=== PATIENT | female | born 1955 | race Two or more races ===

== ENCOUNTER 2022-05-09 06:00 | Day surgery (SDC) | payer OTHER ==
[~2022-05-09] VITALS: Ht 157.5 cm; Wt 62.6 kg
[~2022-05-09 06:00] MED LIST: ATORVASTATIN CA20 MG PO; GLUMETZA500 MG PO; SINGULAIR10 MG PO
== END 2022-05-09 20:30 | disposition home or self-care (01) ==
LOC: CIR.AMB 06:00
PROVIDERS: ATTEND Surgery
DX: D05.12 Intraductal carcinoma in situ of left breast (principal); R59.0 Localized enlarged lymph nodes; E78.00 Pure hypercholesterolemia, unspecified; Z86.16 Personal history of COVID-19; F17.210 Nicotine dependence, cigarettes, uncomplicated; Z20.822 Contact with and (suspected) exposure to COVID-19
CPT/HCPCS: 19301; 38525; 38792; 19281; A9541; L8699

== ENCOUNTER 2022-05-27 09:56 | Emergency (ER) | payer OTHER ==
[~2022-05-27] VITALS: Ht 157.5 cm; Wt 63.5 kg
[2022-05-27] MEDS ORDERED: CHILDREN'S ASPI81 MG PO (10:08)
== END 2022-05-27 10:39 | disposition home or self-care (01) ==
LOC: ER 09:56
DX: L76.34 Postprocedural seroma of skin and subcutaneous tissue following other procedure (principal)